=== PATIENT | male | born 1975 | race African-American/Black ===

== ENCOUNTER → 2016-05-19 | Outpatient (CLI) | payer BC, OTHER ==
[2016-05-19 12:46] LABS: BASO % 1.4 %; BASO ABS # 0.06 K/uL (0-0.2); COMPLETE YES; EOS % 11.5 %; HEMATOCRIT 39.3 % (42-52); IG% 0.2 %; LYMPH % 37.8 %; LYMPH ABS # 1.64 K/uL (1.2-3.4); MEAN CELL VOLUME 97.5 fL (80-100); MEAN CORPUSCULAR HEMOGLOBIN 32.3 pg (25-34); MEAN CORPUSCULAR HGB CONC 33.1 g/dl (32-36); MEAN PLATELET VOLUME 11.9 fL (7.4-10.4); MONO % 9.7 %; NEUT % 39.4 %; PLATELET COUNT 218 K/uL (130-400); RED BLOOD COUNT 4.03 M/uL (4.7-6.1); WHITE BLOOD COUNT 4.34 K/uL (4.8-10.8)
[2016-05-19 12:56] LABS: ALT/SGPT 25 U/L (12-78); AST/SGOT 18 U/L (15-37); BLOOD UREA NITROGEN 15 mg/dl (7-18); BUN/CREATININE RATIO 14.5 (10-20); CALCIUM 8.7 mg/dl (8.5-10.1); CARBON DIOXIDE 29 mmol/L (21-32); CHLORIDE 105 mmol/L (98-107); CHOLESTEROL 189 mg/dl (0-200); GLUCOSE 91 mg/dl (70-99); POTASSIUM 4.1 mmol/L (3.5-5.1); SODIUM 142 mmol/L (136-145); TRIGLYCERIDES 104 mg/dl (0-150); VERY LOW DENSITY LIPOPROT CALC 21 mg/dl
[2016-05-19 12:59] LABS: ALB/GLOB RATIO 1.1 (0.9-2); ALKALINE PHOSPHATASE 50 U/L (45-117); HDL CHOLESTEROL 63 mg/dl
== END | disposition home or self-care (01) ==
LOC: C.LABSPEC 12:18
PROVIDERS: ATTEND Internal Medicine
DX: Z00.00 Encounter for general adult medical examination without abnormal findings (principal); M25.521 Pain in right elbow; E78.5 Hyperlipidemia, unspecified; B34.9 Viral infection, unspecified

== ENCOUNTER → 2016-07-15 | Outpatient (CLI) | payer OTHER ==
--- NOTE | 2016-07-15 08:10 | DIAGNOSTIC IMAGING REPORT ---
DOUBLE CONTRAST BARIUM ESOPHAGRAM CLINICAL HISTORY: Dysphagia. COMPARISON STUDY: No priors. TECHNIQUE: A standard air contrast barium esophagram is performed. Multiple spot images of the esophagus are acquired both upright and prone. FINDINGS: The patient swallowed barium and the barium pill without difficulty. The mucosal pattern is normal. There is no evidence of intrinsic or extrinsic mass lesion. No aspiration was seen. The gastroesophageal junction distended normally. Gastroesophageal reflux was observed during the examination. Fluoroscopy time: 1.2 minutes. Fluoroscopic images: 23 IMPRESSION: 1. Gastroesophageal reflux was observed during the examination. 2. Otherwise normal barium esophagram. Electronically signed by: Ruy Berger M.D. 07/15/2016 8:08 AM Dictated Date/Time: 07/15/2016 8:08 AM
== END | disposition home or self-care (01) ==
LOC: C.RAD 07:36
PROVIDERS: ATTEND Internal Medicine
DX: R13.10 Dysphagia, unspecified (principal)

== ENCOUNTER → 2017-05-18 | Outpatient (CLI) | payer BC, OTHER ==
[2017-05-18 13:25] LABS: ALBUMIN 4.1 gm/dl (3.4-5.0); ALT/SGPT 34 U/L (12-78); AST/SGOT 23 U/L (15-37); BLOOD UREA NITROGEN 17 mg/dl (7-18); CALCIUM 8.9 mg/dl (8.5-10.1); CARBON DIOXIDE 30 mmol/L (21-32); CHOLESTEROL 198 mg/dl (0-200); CREATININE 0.97 mg/dl (0.60-1.40); GLUCOSE 96 mg/dl (70-99); SODIUM 139 mmol/L (136-145)
[2017-05-18 13:28] LABS: ALKALINE PHOSPHATASE 51 U/L (45-117); LDL CHOLESTEROL (DIRECT) 123 mg/dl; TOTAL PROTEIN 7.7 gm/dl (6.4-8.2)
== END | disposition home or self-care (01) ==
LOC: C.LABSPEC 12:32
PROVIDERS: ATTEND Internal Medicine
DX: Z00.00 Encounter for general adult medical examination without abnormal findings (principal); K21.9 Gastro-esophageal reflux disease without esophagitis